=== PATIENT | female | born 1955 | race Caucasian/White ===

== ENCOUNTER 2016-07-11 10:21 | Emergency (ER) | payer OTHER ==
[2016-07-11] MEDS ORDERED: Penicillin G Benzathine 1,200,000 Units/2 ML Syringe IM ONE (10:36)
--- NOTE | 2016-07-11 10:50 | EDM.PDOC ---
ED HPI GENERAL MEDICAL PROBLEM - General Chief Complaint: ENT Problem Stated Complaint: SHOT Time Seen by Provider: 07/11/16 10:30 Source of Information: Reports: Patient History Limitations: Reports: No Limitations - History of Present Illness INITIAL COMMENTS - FREE TEXT/NARRATIVE: History of present illness: [61-year-old female comes in from the dentist with complaints of dental abscess and swelling to her face. It office to call the ER requesting a Bicillin injection patient has presented for the same.] Review of systems: As per history of present illness and below otherwise all systems reviewed and negative. Past medical history: As per history of present illness and as reviewed below otherwise noncontributory. Surgical history: As per history of present illness and as reviewed below otherwise noncontributory. Social history: No reported history of drug or alcohol abuse. Family history: As per history of present illness and as reviewed below otherwise noncontributory. Physical exam: HEENT: Left-sided lower jaw slightly edematous with a line of erythema going down the line of lymph into her neck, pupils reactive, negative for conjunctival pallor or scleral icterus, mucous membranes moist, throat clear, neck supple, nontender, trachea midline. Lungs: Clear to auscultation, breath sounds equal bilaterally, chest nontender. Heart: S1S2, regular, negative for clicks, rubs, or JVD. Abdomen: Soft, nondistended, nontender. Negative for masses or hepatosplenomegaly. Negative for costovertebral tenderness. Pelvis: Stable nontender. Genitourinary: Deferred. Rectal: Deferred. Extremities: Atraumatic, negative for cords or calf pain. Neurovascular unremarkable. Neuro: Awake, alert, oriented. Cranial nerves II through XII unremarkable. Cerebellum unremarkable. Motor and sensory unremarkable throughout. Exam nonfocal. Of note patient has difficulty opening mouth to get good visualization but can tolerate mild palpation and the parotid lymph gland is quite inflamed. Diagnostics: [] Therapeutics: [Dental abscess] Impression: [1.2 bili minutes of Bicillin LA per dental request] Plan: [Patient to get injection here has a prescription for Keflex by the dentist and will followup with the dentist Saturday per dental plan] Definitive disposition and diagnosis as appropriate pending reevaluation and review of above. - Related Data Allergies Allergy/AdvReac Type Severity Reaction Status Date / Time No Known Allergies Allergy Verified 07/11/16 10:32 Home Meds: Home Meds . [No Known Home Meds] 07/11/16 [History] Social & Family History - Family History Family Medical History: Noncontributory - Tobacco Use Smoking Status *Q: Never Smoker - Recreational Drug Use Recreational Drug Use: No ED ROS GENERAL - Review of Systems Review Of Systems: See Below (See history of present illness) ED EXAM, GENERAL - Physical Exam Exam: See Below (History of present illness) Course - Vital Signs Last Recorded V/S: Last Vital Signs Temp 37.0 C 07/11/16 10:33 Pulse 78 07/11/16 10:33 Resp 18 07/11/16 10:33 BP 170/87 H 07/11/16 10:33 Pulse Ox 98 07/11/16 10:33 - Orders/Labs/Meds Meds: Medications Discontinued Medications Generic Name Dose Route Start Last Admin Trade Name Freq PRN Reason Stop Dose Admin Penicillin G Benzathine 1.2 millunits 07/11/16 10:36 07/11/16 10:41 Bicillin L-A IM 07/11/16 10:37 1.2 millunits ONETIME ONE Administration Departure - Departure Time of Disposition: 10:49 Disposition: Home, Self-Care 01 Condition: good Clinical Impression: Dental abscess - Discharge Information Forms: ED Department Discharge Additional Instructions: The following information is given to patients seen in the emergency department who are being discharged to home. This information is to outline your options for follow-up care. We provide all patients seen in our emergency department with a follow-up referral. The need for follow-up, as well as the timing and circumstances, are variable depending upon the specifics of your emergency department visit. If you don't have a primary care physician on staff, we will provide you with a referral. We always advise you to contact your personal physician following an emergency department visit to inform them of the circumstance of the visit and for follow-up with them and/or the need for any referrals to a consulting specialist. The emergency department will also refer you to a specialist when appropriate. This referral assures that you have the opportunity for follow-up care with a specialist. All of these measure are taken in an effort to provide you with optimal care, which includes your follow-up. Under all circumstances we always encourage you to contact your private physician who remains a resource for coordinating your care. When calling for follow-up care, please make the office aware that this follow-up is from your recent emergency room visit. If for any reason you are refused follow-up, please contact the [facility] Emergency Department at and asked to speak to the emergency department charge nurse. You've been given any antibiotic injection here today per request of your dentist Please take your Keflex as directed by your this This followup with your dentist Saturday as that is the plan established with your dentist by your dentist Return to the ER as needed as discussed
[2016-07-11 11:04] VITALS: BP 145/76
== END 2016-07-11 11:05 | disposition home or self-care (01) ==
LOC: MW.ED 10:21
DX: K04.7 Periapical abscess without sinus (principal)
CPT/HCPCS: 96372; 99282; J0561; 99283

== ENCOUNTER 2016-08-01 11:26 | Day surgery (SDC) | payer SELFPAY ==
[~2016-08-01 11:26] MED LIST: Lactated Ringers 1,000 ML IV SCH
--- NOTE | 2016-08-01 13:08 | PCM.PREANE ---
Preanesthetic Assessment - Procedure Proposed Procedure: right angle of mandible lesion exploration - Anesthesia/Transfusion/Family Hx Anesthesia History: Prior Anesthesia Without Reaction Transfusion History: No Prior Transfusion(s) Intubation History: Unknown - Review of Systems General: Other (pain on right jaw (surgical site)) Pulmonary: No Symptoms Cardiovascular: No Symptoms Gastrointestinal: No symptoms Neurological: No Symptoms Other: Reports: None - Physical Assessment NPO Status Date: 07/31/16 NPO Status Time: 22:00 O2 Sat by Pulse Oximetry: 97 Respiratory Rate: 16 Vital Signs: Last Vital Signs Temp 98.8 F 08/01/16 11:45 Pulse 65 08/01/16 11:45 Resp 16 08/01/16 11:45 BP 137/75 08/01/16 11:45 Pulse Ox 97 08/01/16 11:45 Height: 5 ft 2 in Weight: 125 lb ASA Class: 2 Mental Status: Alert & Oriented x3 Airway Class: Mallampati = 1 Dentition: Reports: Normal Dentition (#9 s/p trauma) Thyro-Mental Finger Breadths: 3 Mouth Opening Finger Breadths: 3 ROM/Head Extension: Limited/Partial Lungs: Clear to auscultation, Normal respiratory effort Cardiovascular: Regular Rate, Regular Rhythm, No Murmurs - Allergies Allergies/Adverse Reactions: Allergies Allergy/AdvReac Type Severity Reaction Status Date / Time No Known Allergies Allergy Verified 07/31/16 14:43 - Blood Blood Available: No - Anesthesia Plan Pre-Op Medication Ordered: None - Acknowledgements Anesthesia Type Planned: General Anesthesia (probable LMA) Pt an Appropriate Candidate for the Planned Anesthesia: Yes Alternatives and Risks of Anesthesia Discussed w Pt/Guardian: Yes Pt/Guardian Understands and Agrees with Anesthesia Plan: Yes PreAnesthesia Questionnaire Other HEENT History: uses reading glasses Cardiovascular History: Reports: None Respiratory History: Reports: Asthma Gastrointestinal History: Reports: None Genitourinary History: Reports: None [employer]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: Reports: None Musculoskeletal History: Reports: Fracture Other Musculoskeletal History: hx of fx finger Neurological History: Reports: None Psychiatric History: Reports: None Endocrine/Metabolic History: Reports: None Hematologic History: Reports: None Immunologic History: Reports: None Oncologic (Cancer) History: Reports: None Dermatologic History: Reports: None - Past Surgical History Head Surgeries/Procedures: Reports: None HEENT Surgical History: Reports: Tonsillectomy Cardiovascular Surgical History: Reports: None Respiratory Surgical History: Reports: None GI Surgical History: Reports: None Female Surgical History: Reports: D&C Endocrine Surgical History: Reports: None Neurological Surgical History: Reports: None Musculoskeletal Surgical History: Reports: None Oncologic Surgical History: Reports: None Dermatological Surgical History: Reports: None - SUBSTANCE USE Smoking Status *Q: Never Smoker Recreational Drug Use History: No - HOME MEDS Home Medications: Home Meds Cephalexin [Keflex] 500 mg PO QID 07/31/16 [History] - CURRENT (IN HOUSE) MEDS Current Meds: Current Medications Lactated Ringer's (Ringers, Lactated) 1,000 mls @ 125 mls/hr IV ASDIRECTED [facility] Last Admin: 08/01/16 11:43 Dose: 125 mls/hr
[2016-08-01] MEDS ORDERED: Ondansetron 4 MG/2 ML SDV ONE (13:42)
[2016-08-01] MEDS ORDERED: Propofol 200 MG/20 ML SDV ONE (13:43)
[2016-08-01] MEDS ORDERED: fentaNYL 250 MCG/5 ML SDV ONE (13:43)
[2016-08-01] MEDS ORDERED: Midazolam 1 MG/ML 2 ML SDV ONE (13:43)
[2016-08-01] MEDS ORDERED: Dexamethasone 4 MG/ML 5 ML MDV ONE (14:56)
[2016-08-01] MEDS ORDERED: Lidocaine 2% with EPINEPHrine 1:100,000 20 ML MDV ONE (15:21)
--- NOTE | 2016-08-01 16:05 | PCM.POSTAN ---
POST ANESTHESIA ASSESSMENT - RESPIRATORY Respiratory Status: respiratory rate WNL, airway patent, O2 saturation stable - CARDIOVASCULAR CV Status: pulse rate WNL, blood pressure stable - GASTROINTESTINAL GI Status: no symptoms - PAIN Pain Score: 0 - POST OP HYDRATION Hydration Status: adequate & stable
--- NOTE | 2016-08-01 16:06 | PCM48HPAN ---
Post Anesthesia Note - EVALUATION WITHIN 48HRS OF ANESTHETIC Vital Signs in Normal Range: Yes Patient Participated in Evaluation: Yes Respiratory Function Stable: Yes Airway Patent: Yes Cardiovascular Function Stable: Yes Hydration Status Stable: Yes Pain Control Satisfactory: Yes Nausea and Vomiting Control Satisfactory: Yes Mental Status Recovered: Yes
--- NOTE | 2016-08-01 16:27 | PCM.HPR ---
H & P Addendum review - H & P Addendum Review Date of Original H & P: 07/30/16 Date Reviewed: 08/01/16 Time Reviewed: 14:00 Patient was examined: No Changes
[2016-08-01 16:32] VITALS: BP 108/60
--- NOTE | 2016-08-01 16:41 | PCM.OPNOTE ---
- General Post-Op/Procedure Note Date of Surgery/Procedure: 08/01/16 Operative Procedure(s): Incision and drainage of Right facial abscess Findings: Approximately 3cm X 3cm swelling overlying the right angle of mandible; overlying skin - hyperemic; peripheral induration +; central fluctuation +; minimal thick purulence present; profuse amount of granulation appearing tissue present in the cavity Pre Op Diagnosis: Right facial abscess Post-Op Diagnosis: Right facial abscess with granulation tissue Anesthesia Technique: General LMA, MAC Primary Surgeon: Sidra Rasmussen Anesthesia Provider: Carlos Guerrero Pathology: Pus - culture and sensitivity Tissue for histology Fluid Replacement, Intraop: 500 EBL in mLs: 5 Drain/Tube Comments:: Iodoform pack - quarter inch; approx 25 cm inserted Condition: Good Free Text/Narrative:: Intake & Output 08/01/16 08/01/16 08/01/16 06:59 14:59 22:59 Intake Total 1300 Balance 1300 Indications: This patient presented to my office with a three-week history of right-sided facial swelling. When symptoms commenced she was seen by her dentist who also perform a right lower end of extraction. The swelling did not subside and she was referred to outside facility and underwent a CT scan which was suggestive of a collection adjacent to the angle of right mandible. She did not allow for the facility and was subsequently referred to me for further management. When seen in the office she had the right facial swelling as described. An ultrasound was performed which was also suggestive of an abscess / complex fluid collection. She was consented for the procedure today. Operation Details: An informed consent was obtained. A time out was performed and the patient was brought back to the operating room. General anesthesia was administered with a laryngeal mask airway. The part was prepped and draped in standard sterile fashion. An 18-gauge needle was used over a 5 cc syringe to aspirate-minimal purulence with blood staining was obtained. This was sent for culture and sensitivity. A stab incision was made with a #11 blade. The abscess cavity was further widely opened in all directions with a hemostat clamp. No further purulence was expressed. Cavity tissue was obtained and sent away for histopathology Wound was thoroughly irrigated with saline. Iodofoam packing was placed in the wound and hemostasis was achieved. Dressing was applied. This concluded the procedure and patient was handed over to anesthesia for recovery. Follow up: Tomorrow for partial pack removal
== END 2016-08-01 16:40 | disposition home or self-care (01) ==
LOC: MW.SDS 11:26
PROVIDERS: ATTEND Otolaryngology
PROC: 0H91XZZ Drainage of Face Skin, External Approach (ICD-10-PCS; principal; 2016-08-01)
DX: L02.01 Cutaneous abscess of face (principal); J45.909 Unspecified asthma, uncomplicated; Z90.89 Acquired absence of other organs; Z98.890 Other specified postprocedural states
CPT/HCPCS: 10160; 87070; 87075; 87077; 87205; 88304; J1100; J2250; J2405; J3010; J7120; 00300; J2704